=== PATIENT | male | born 1965 | race Two or more races ===

== ENCOUNTER 2023-07-29 19:56 | Inpatient (IN) | payer MEDICAID, OTHER ==
[~2023-07-29] VITALS: Ht 175.3 cm; Wt 64.5 kg
[2023-07-29] MEDS ORDERED: IV NS 0.9% 1,000 ML BAG IV ONE (20:30)
[2023-07-29] MEDS ORDERED: VANCOMYCIN 1 GM in IV D5W 250 ML IV ONE (20:30)
[2023-07-29] MEDS ORDERED: PIPERACILLIN /TAZOBACTAM 3.375 G in IV D5W 50 ML IV ONE (20:30)
[2023-07-29] MEDS ORDERED: VANCOMYCIN 1 GM /D5W 250 ML PB IV ONE (21:22)
[2023-07-29] MEDS ORDERED: PIPERACI/TAZO 3.375GM/D5W 50ML PB IV ONE (21:22)
[2023-07-29 21:44] LABS: BASOPHILS # (AUTO) 0.1 K/uL (0.0-0.2); BASOPHILS % (AUTO) 0.6 % (0.0-2.0); EOSINOPHILS # (AUTO) 0.1 K/uL (0.0-0.7); EOSINOPHILS % (AUTO) 0.6 % (0.0-6.0); HEMATOCRIT 35 % (39-51); HEMOGLOBIN 11.2 g/dL (13.5-17.5); LYMPHOCYTES # (AUTO) 1.5 K/uL (0.8-4.8); LYMPHOCYTES % (AUTO) 17.5 % (20.0-44.0); MEAN CORPUSCULAR HEMOGLOBIN 28 PG (26.0-33.0); MEAN CORPUSCULAR HGB CONC 32 g/dl (31.0-36.0); MEAN CORPUSCULAR VOLUME 88 fL (80-96); MONOCYTES # (AUTO) 0.8 K/uL (0.1-1.30); MONOCYTES % (AUTO) 9.3 % (2.0-12.0); NEUTROPHILS # (AUTO) 6.3 K/uL (1.8-8.9); PLATELET COUNT (AUTO) 441 K/uL (150-450); RED BLOOD CELL COUNT(AUTO) 3.95 MIL/uL (4.5-6.0); RED CELL DISTRIBUTION WIDTH 18.1 % (11.5-15.0); WHITE BLOOD COUNT (AUTO) 8.8 K/uL (4.3-11.0)
[2023-07-29 21:55] LABS: INR 1.02 (0.91-1.10); PARTIAL THROMBOPLASTIN TIME 27.3 SEC (24.3-34.3); PROTHROMBIN TIME 10.8 SECS (9.2-11.1)
[2023-07-29 22:14] LABS: ALANINE AMINOTRANSFERASE 18 U/L (12-78); ALBUMIN 3.5 g/dL (3.4-5.0); ALKALINE PHOSPHATASE 93 U/L (46-116); ASPARTATE AMINOTRANSFERASE 21 U/L (15-37); BILIRUBIN,DIRECT 0.2 mg/dL (0.0-0.2); BILIRUBIN,TOTAL 0.7 mg/dL (0.2-1.0); CALCIUM, SERUM 9.8 mg/dL (8.5-10.1); CARBON DIOXIDE 27 mmol/L (21-32); CHLORIDE 100 mmol/L (98-107); CREATININE 1.2 mg/dL (0.6-1.3); GLUCOSE 97 mg/dL (74-106); POTASSIUM 3.1 mmol/L (3.5-5.1); SODIUM SERUM 140 mmol/L (136-145); TOTAL PROTEIN, SERUM 7.7 g/dL (6.4-8.2); UREA NITROGEN, BLOOD 20 mg/dL (7-18)
[2023-07-29 22:16] LABS: LACTIC ACID 1.3 mmol/L (0.4-2.0)
[2023-07-30] MEDS ORDERED: MAGNESIUM HYDROXIDE 30 ML UDC PO PRN (02:00)
[2023-07-30] MEDS ORDERED: MORPHINE SULFATE INJ 2 MG/ML DISP.SYRIN IV PRN (02:00)
[2023-07-30] MEDS ORDERED: ONDANSETRON HCL/PF 4 MG/2 ML VIAL IVP PRN (02:00)
[2023-07-30] MEDS ORDERED: DEXTROSE 50%-WATER 50 ML DISP.SYRIN IV PRN (02:00)
[2023-07-30] MEDS ORDERED: ACETAMINOPHEN 325 MG TABLET PO PRN (02:00)
[2023-07-30] MEDS ORDERED: Z GUARD REMEDY 4 OZ OINT TP PRN (02:00)
[2023-07-30] MEDS ORDERED: POTASSIUM CL. PREMIX PERIPHER. 50 ML ONE ×2 (02:06→02:13)
[2023-07-30] MEDS: POTASSIUM CL. PREMIX PERIPHER. 50 ML IV SCH ×4 (02:15→05:15)
[2023-07-30] MEDS ORDERED: POTASSIUM CL. PREMIX PERIPHER. 100 ML ONE (03:38)
[2023-07-30] MEDS: BLOOD SUGAR DIAGNOSTIC 1 EACH STRIP IN SCH ×4 (06:21→23:51)
[2023-07-30] MEDS ORDERED: PANTOPRAZOLE 40 MG TABLET.DR PO ONE (07:58)
[2023-07-30] MEDS: PANTOPRAZOLE 40 MG TABLET.DR PO SCH (08:12)
[2023-07-30] MEDS ORDERED: METF-442 PO (09:22)
[2023-07-30] MEDS ORDERED: MIRT-91 PO (09:26)
[2023-07-30] MEDS ORDERED: OXYC-128 PO (09:26)
[2023-07-30] MEDS ORDERED: DICY20TA11 PO (09:26)
[2023-07-30] MEDS ORDERED: EMPA10TA PO (09:26)
[2023-07-30] MEDS ORDERED: MAGN400T8 PO (09:26)
[2023-07-30] MEDS ORDERED: RIBO100T6 PO (09:26)
[2023-07-30] MEDS ORDERED: LEVE750T10 PO (09:26)
[2023-07-30] MEDS ORDERED: oxyCODONE/APAP (5/325 MG) 1 UDTAB TABLET PO PRN (10:30)
[2023-07-30] MEDS ORDERED: DICYCLOMINE HCL 10 MG CAPSULE PO PRN (11:00)
[2023-07-30] MEDS ORDERED: GADOTERATE MEGLUMINE 10 MMOL/20 ML VIAL IV ONE (11:29)
[2023-07-30 12:00] VITALS: BP 118/94; TEMP 98.3; O2SAT 94
[2023-07-30 12:10] VITALS: BP 118/94; TEMP 98.3; O2SAT 94
[2023-07-30] MEDS: IV D5/0.45 NACL 1,000 ML IV PRN (12:18)
[2023-07-30] MEDS: dexaMETHasone SOD PHOSPHATE 10 MG/ML VIAL IV SCH ×3 (12:21→23:48)
[2023-07-30] MEDS: MAGNESIUM OXIDE 400 MG TABLET PO SCH (16:31)
[2023-07-30 16:37] VITALS: BP 124/100; TEMP 97.7; O2SAT 95
[2023-07-30] MEDS: INSULIN REGULAR, HUMAN 100 UNIT/ML 3 ML VIAL SQ PRN (17:14)
[2023-07-30 20:00] VITALS: BP 126/114; TEMP 98.3; O2SAT 97
[2023-07-30] MEDS: RIBOFLAVIN 100 MG PO SCH (21:00)
[2023-07-30] MEDS: LEVETIRACETAM (250 MG) 250 MG TABLET PO SCH (21:00)
[2023-07-30] MEDS: MIRTAZAPINE 15 MG TABLET PO SCH (22:00)
[2023-07-30] MEDS: TAMSULOSIN 0.4 MG CAP.SR.24H PO SCH (22:00)
[2023-07-31] VITALS: BP 136/69; TEMP 98; O2SAT 100
[2023-07-31] MEDS: IV D5/0.45 NACL 1,000 ML IV PRN ×2 (04:06→20:42)
[2023-07-31 05:56] VITALS: BP 143/104; TEMP 98; O2SAT 100
[2023-07-31] MEDS: dexaMETHasone SOD PHOSPHATE 10 MG/ML VIAL IV SCH ×3 (06:38→17:27)
[2023-07-31] MEDS: BLOOD SUGAR DIAGNOSTIC 1 EACH STRIP IN SCH ×3 (06:38→17:26)
[2023-07-31] MEDS: PANTOPRAZOLE 40 MG TABLET.DR PO SCH (08:14)
[2023-07-31] MEDS: MAGNESIUM OXIDE 400 MG TABLET PO SCH ×3 (08:55→17:00)
[2023-07-31] MEDS: LEVETIRACETAM (250 MG) 250 MG TABLET PO SCH ×3 (08:59→21:13)
[2023-07-31] MEDS: RIBOFLAVIN 100 MG PO SCH ×3 (09:00→21:05)
[2023-07-31] MEDS: HOME MED MISC JARDIANCE 10MG PO SCH (09:00)
[2023-07-31 11:46] LABS: APPEARANCE,URINE CLEAR (CLEAR); BILIRUBIN,URINE NEGATIVE (NEGATIVE); BLOOD, URINE NEGATIVE Ery/uL (NEGATIVE); COLOR,URINE YELLOW (YELLOW); KETONES,URINE 1+ mg/dL (NEGATIVE); LEUKOCYTE ESTERASE ,URINE NEGATIVE (NEGATIVE); NITRITE, URINE NEGATIVE (NEGATIVE); PROTEIN,URINE NEGATIVE (NEGATIVE); UGLUCOSE 3+ mg/dL (NEGATIVE); UROBILINOGEN,URINE 0.2 EU/dL (0.2)
[2023-07-31 11:51] LABS: ADD URINE CULTURE NO; BACTERIA,URINE None seen /HPF (None Seen); RBC,URINE 0-2 /HPF (0-2); SQUAMOUS EPITHELIAL CELL,UR None Seen /HPF (None Seen); WBC,URINE 0-2 /HPF (0-3)
[2023-07-31] MEDS: GLUCERNA SHAKE 237 ML CAN PO SCH ×2 (12:00→17:26)
[2023-07-31 20:00] VITALS: BP 116/60; TEMP 97.9; O2SAT 96
[2023-07-31] MEDS: MIRTAZAPINE 15 MG TABLET PO SCH (21:07)
[2023-07-31] MEDS: TAMSULOSIN 0.4 MG CAP.SR.24H PO SCH (21:22)
[2023-08-01] VITALS: BP 120/92; TEMP 97.9; O2SAT 97
[2023-08-01] MEDS: BLOOD SUGAR DIAGNOSTIC 1 EACH STRIP IN SCH ×6 (00:26→23:20)
[2023-08-01] MEDS: dexaMETHasone SOD PHOSPHATE 10 MG/ML VIAL IV SCH ×4 (00:39→17:35)
[2023-08-01 04:00] VITALS: BP 112/73; TEMP 96.5; O2SAT 93
[2023-08-01] MEDS: PANTOPRAZOLE 40 MG TABLET.DR PO SCH (07:30)
[2023-08-01] MEDS: GLUCERNA SHAKE 237 ML CAN PO SCH ×3 (08:00→17:00)
[2023-08-01] MEDS: LEVETIRACETAM (250 MG) 250 MG TABLET PO SCH (09:00)
[2023-08-01] MEDS: MAGNESIUM OXIDE 400 MG TABLET PO SCH ×2 (09:00→17:00)
[2023-08-01] MEDS: RIBOFLAVIN 100 MG PO SCH ×3 (09:00→21:13)
[2023-08-01] MEDS: HOME MED MISC JARDIANCE 10MG PO SCH (09:00)
[2023-08-01] MEDS ORDERED: LEVETIRACETAM (500MG) 1,000 MG in IV NS 0.9% 90 ML IV ONE (10:30)
[2023-08-01] MEDS: ASPIRIN 81 MG TAB.CHEW PO SCH ×2 (12:00→14:15)
[2023-08-01] MEDS ORDERED: LORAZEPAM INJ 2 MG/ML VIAL IV ONE (14:35)
[2023-08-01] MEDS ORDERED: LORAZEPAM INJ 2 MG/ML VIAL IV PRN (15:00)
[2023-08-01] MEDS ORDERED: dexaMETHasone SOD PHOSPHATE 4 MG/ML VIAL IV SCH (18:00)
[2023-08-01] MEDS: dexaMETHasone SOD PHOSPHATE 4 MG/ML VIAL IV SCH (18:00)
[2023-08-01 20:00] VITALS: BP 107/79; TEMP 97.6; O2SAT 94
[2023-08-01] MEDS: LEVETIRACETAM (500MG) 750 MG in IV NS 0.9% 100 ML IV SCH (21:08)
[2023-08-01] MEDS: MIRTAZAPINE 15 MG TABLET PO SCH (22:00)
[2023-08-01] MEDS: TAMSULOSIN 0.4 MG CAP.SR.24H PO SCH (22:00)
[2023-08-02] VITALS: BP 132/98; TEMP 97.7; O2SAT 95
[2023-08-02] MEDS: dexaMETHasone SOD PHOSPHATE 4 MG/ML VIAL IV SCH ×4 (00:24→18:05)
[2023-08-02 05:00] VITALS: BP 128/62; TEMP 97.8; O2SAT 97
[2023-08-02] MEDS: BLOOD SUGAR DIAGNOSTIC 1 EACH STRIP IN SCH ×3 (06:00→18:22)
[2023-08-02] MEDS: PANTOPRAZOLE 40 MG TABLET.DR PO SCH (07:30)
[2023-08-02] MEDS: GLUCERNA SHAKE 237 ML CAN PO SCH ×2 (08:00→12:00)
[2023-08-02] MEDS: HOME MED MISC JARDIANCE 10MG PO SCH (09:00)
[2023-08-02] MEDS: MAGNESIUM OXIDE 400 MG TABLET PO SCH ×2 (09:00→17:00)
[2023-08-02] MEDS: RIBOFLAVIN 100 MG PO SCH ×2 (09:00→21:00)
[2023-08-02] MEDS: ASPIRIN 81 MG TAB.CHEW PO SCH (09:00)
[2023-08-02 09:01] LABS: BASOPHILS % (AUTO) 0.1 % (0.0-2.0); EOSINOPHILS % (AUTO) 0.1 % (0.0-6.0); HEMATOCRIT 31 % (39-51); HEMOGLOBIN 10.1 g/dL (13.5-17.5); LYMPHOCYTES # (AUTO) 1.2 K/uL (0.8-4.8); LYMPHOCYTES % (AUTO) 20.1 % (20.0-44.0); MEAN CORPUSCULAR HEMOGLOBIN 29 PG (26.0-33.0); MEAN CORPUSCULAR HGB CONC 33 g/dl (31.0-36.0); MEAN CORPUSCULAR VOLUME 89 fL (80-96); MONOCYTES # (AUTO) 0.8 K/uL (0.1-1.30); MONOCYTES % (AUTO) 13.1 % (2.0-12.0); NEUTROPHILS # (AUTO) 4.1 K/uL (1.8-8.9); NEUTROPHILS % (AUTO) 66.6 % (43.0-81.0); PLATELET COUNT (AUTO) 325 K/uL (150-450); RED BLOOD CELL COUNT(AUTO) 3.49 MIL/uL (4.5-6.0); RED CELL DISTRIBUTION WIDTH 17.4 % (11.5-15.0); WHITE BLOOD COUNT (AUTO) 6.1 K/uL (4.3-11.0)
[2023-08-02 09:15] LABS: CREATININE 0.9 mg/dL (0.6-1.3)
[2023-08-02 09:28] LABS: POTASSIUM 2.8 mmol/L (3.5-5.1)
[2023-08-02] MEDS: POTASSIUM CHLORIDE 10 MEQ TABLET.SA PO SCH ×3 (10:49→17:00)
[2023-08-02] MEDS: LEVETIRACETAM (500MG) 750 MG in IV NS 0.9% 100 ML IV SCH ×2 (10:49→20:50)
[2023-08-02] MEDS ORDERED: diphenhydrAMINE HCL 50 MG/ML VIAL IV ONE (12:30)
[2023-08-02] MEDS: IV D5/0.45 NACL 1,000 ML IV PRN (19:44)
[2023-08-02] MEDS: TAMSULOSIN 0.4 MG CAP.SR.24H PO SCH (21:10)
[2023-08-02] MEDS: MIRTAZAPINE 15 MG TABLET PO SCH (21:12)
[2023-08-03] VITALS: BP 135/98; TEMP 98.1; O2SAT 95
[2023-08-03] MEDS: dexaMETHasone SOD PHOSPHATE 4 MG/ML VIAL IV SCH ×4 (00:29→17:06)
[2023-08-03] MEDS: BLOOD SUGAR DIAGNOSTIC 1 EACH STRIP IN SCH ×5 (06:00→23:36)
[2023-08-03 07:30] VITALS: BP 127/85; TEMP 98.1; O2SAT 97
[2023-08-03] MEDS: PANTOPRAZOLE 40 MG TABLET.DR PO SCH (07:30)
[2023-08-03] MEDS: RIBOFLAVIN 100 MG PO SCH ×2 (08:54→22:13)
[2023-08-03] MEDS: ASPIRIN 81 MG TAB.CHEW PO SCH (08:54)
[2023-08-03] MEDS: MAGNESIUM OXIDE 400 MG TABLET PO SCH ×2 (08:54→16:45)
[2023-08-03] MEDS: HOME MED MISC JARDIANCE 10MG PO SCH (08:54)
[2023-08-03] MEDS: LEVETIRACETAM (500MG) 750 MG in IV NS 0.9% 100 ML IV SCH (10:00)
[2023-08-03] MEDS: INSULIN REGULAR, HUMAN 100 UNIT/ML 3 ML VIAL SQ PRN (11:32)
[2023-08-03] MEDS: IV D5/0.45 NACL 1,000 ML IV PRN (11:40)
[2023-08-03 20:00] VITALS: BP 134/82; TEMP 97.5; O2SAT 95
[2023-08-03] MEDS: MIRTAZAPINE 15 MG TABLET PO SCH (22:06)
[2023-08-03] MEDS: LEVETIRACETAM (250 MG) 250 MG TABLET PO SCH (22:06)
[2023-08-03] MEDS: TAMSULOSIN 0.4 MG CAP.SR.24H PO SCH (22:07)
[2023-08-04] VITALS: BP 122/90; TEMP 97.9; O2SAT 96
[2023-08-04] MEDS: dexaMETHasone SOD PHOSPHATE 4 MG/ML VIAL IV SCH ×4 (00:58→12:39)
[2023-08-04] MEDS: IV D5/0.45 NACL 1,000 ML IV PRN (01:07)
[2023-08-04 04:00] VITALS: BP 129/104; TEMP 98.2; O2SAT 97
[2023-08-04] MEDS: BLOOD SUGAR DIAGNOSTIC 1 EACH STRIP IN SCH ×2 (05:59→12:00)
[2023-08-04 07:30] VITALS: BP 132/96; TEMP 97.7; O2SAT 98
[2023-08-04] MEDS: PANTOPRAZOLE 40 MG TABLET.DR PO SCH (07:30)
[2023-08-04] MEDS ORDERED: ASPIRIN 81 MG TAB.CHEW PO SCH (09:00)
[2023-08-04] MEDS: RIBOFLAVIN 100 MG PO SCH (09:00)
[2023-08-04] MEDS: MAGNESIUM OXIDE 400 MG TABLET PO SCH (09:00)
[2023-08-04] MEDS: LEVETIRACETAM (250 MG) 250 MG TABLET PO SCH (09:00)
[2023-08-04] MEDS: ASPIRIN 81 MG TAB.CHEW PO SCH (09:00)
[2023-08-04] MEDS: HOME MED MISC JARDIANCE 10MG PO SCH (09:00)
[2023-08-05] MEDS ORDERED: dexaMETHasone SOD PHOSPHATE 4 MG/ML VIAL IV SCH (18:00)
== END 2023-08-04 16:30 | disposition home or self-care (01) | DRG 50 ==
LOC: ER 19:58 → TRANSITION 07-30 00:26 → TELE 07-30 10:03
PROVIDERS: ADMIT Nurse Practitioner Acute Care; ATTEND Nurse Practitioner Acute Care
DX: G04.81 Other encephalitis and encephalomyelitis (principal); I63.9 Cerebral infarction, unspecified; G93.41 Metabolic encephalopathy; G13.0 Paraneoplastic neuromyopathy and neuropathy; C34.90 Malignant neoplasm of unspecified part of unspecified bronchus or lung; C79.31 Secondary malignant neoplasm of brain; I67.82 Cerebral ischemia; Q28.3 Other malformations of cerebral vessels; G93.89 Other specified disorders of brain; R62.7 Adult failure to thrive; E11.9 Type 2 diabetes mellitus without complications; Z20.822 Contact with and (suspected) exposure to COVID-19; Z79.84 Long term (current) use of oral hypoglycemic drugs; Z79.899 Other long term (current) drug therapy; Z79.69 Long term (current) use of other immunomodulators and immunosuppressants; I10 Essential (primary) hypertension; E87.6 Hypokalemia; R79.89 Other specified abnormal findings of blood chemistry; F32.A Depression, unspecified; F43.20 Adjustment disorder, unspecified; R45.1 Restlessness and agitation; T38.0X5A Adverse effect of glucocorticoids and synthetic analogues, initial encounter; Y92.9 Unspecified place or not applicable
CPT/HCPCS: 36415; 70450-TC; 70553-TC; 71045-TC; 80048-TC; 80076-TC; 81001; 82962-TC; 83605-TC; 84484-TC; 85025-TC; 85730-TC; 86850-TC; 87040-TC; 92526; 92611-TC; 97530-TC; A4223; A4349; A9575; G0378; J1100; J1200; J1953; J2060; J2270; J2405; J2543; J3370; J3480; J3490; J7030; J7042; J7060